=== PATIENT | male | born 1965 | race Caucasian/White ===

== ENCOUNTER 2020-09-07 22:15 | Inpatient (IN) | payer BC, OTHER ==
[~2020-09-07 22:15] MED LIST: Iopamidol-370 76% 500 ML 1 ML ONE
[2020-09-07 22:43] LABS: #Eosinphils 0.1 thou/uL (0.0-0.7); #Lymphocytes 1.9 thou/uL (1.20-3.40); #Monocytes 0.9 thou/uL (0.11-0.59); #Neutrophils 9.8 thou/uL (1.40-6.50); %Basophils 0.1 % (0.0-1.0); %Eosinophils 1.1 % (0.0-10.0); %Lymphocytes 14.9 % (21.0-51.0); %Monocytes 6.8 % (0.0-10.0); %Neutrophils 77.1 % (42.0-75.0); Hemoglobin 15.6 g/dL (14.0-18.0); Mean Corpuscular HGB CONC 35.5 g/dL (32.0-36.0); Mean Corpuscular Hemoglobin 34.8 pg (27.0-31.0); Mean Platelet Volume 7.4 fL (7.4-10.4); Platelet Count 248 thou/uL (130-400); RBC Distribution Width 11.2 % (11.5-14.5); Red Blood Cell (RBC) Count 4.49 mill/uL (4.70-6.10); White Blood Cell (WBC) Count 12.7 thou/uL (4.8-10.8)
[2020-09-07 23:06] LABS: ALT (SGPT) 28 U/L (8-55); AST (SGOT) 31 U/L (5-34); Albumin 4.6 g/dL (3.5-5.0); Alkaline Phosphatase 67 U/L (40-110); Anion Gap 15 mmol/L (10-20); BUN (Urea Nitrogen) 10 mg/dL (8.4-25.7); Bilirubin, Total 0.6 mg/dL (0.2-1.2); Calc. Creatinine Clearance 0 mL/min (70-130); Calcium 8.5 mg/dL (7.8-10.44); Carbon Dioxide 24 mmol/L (22-29); Chloride 96 mmol/L (98-107); Globulin 2.7 g/dL (2.4-3.5); Glucose 93 mg/dL (70-105); Lipase 28 U/L (8-78); Potassium 3.1 mmol/L (3.5-5.1); Protein, Total 7.3 g/dL (6.0-8.3); Sodium 132 mmol/L (136-145)
[2020-09-07] MEDS ORDERED: Morphine 4 MG/ML VIAL ONE (23:12)
[2020-09-08] MEDS ORDERED: Morphine 4 MG/ML VIAL ONE (01:41)
[2020-09-08] MEDS ORDERED: Dextrose 5% in Water 1,000 ML IV PRN (02:23)
[2020-09-08] MEDS ORDERED: hydrALAZINE 20 MG/ML VIAL SLOW IVP PRN (02:23)
[2020-09-08] MEDS ORDERED: Dextrose 50% Abboject 50 ML SYRINGE SLOW IVP PRN (02:23)
[2020-09-08] MEDS ORDERED: traMADol HCl 50 MG TAB PO PRN (02:23)
[2020-09-08] MEDS ORDERED: Ondansetron ODT 4 MG TAB PO PRN (02:23)
[2020-09-08] MEDS ORDERED: Ondansetron PF 4 MG/2 ML Vial IVP PRN (02:23)
[2020-09-08 02:37] VITALS: BMI 26.4
[2020-09-08] MEDS: Sodium Chloride 0.9% 1,000 ML IV SCH ×2 (02:53→11:46)
[2020-09-08] MEDS: traMADol HCl 50 MG TAB PO PRN ×4 (02:53→21:45)
[2020-09-08] MEDS: Cyclobenzaprine 10 MG TAB PO PRN ×3 (02:53→21:46)
[2020-09-08 05:08] LABS: #Lymphocytes 0.8 thou/uL (1.20-3.40); #Monocytes 0.6 thou/uL (0.11-0.59); #Neutrophils 6.7 thou/uL (1.40-6.50); %Basophils 0.3 % (0.0-1.0); %Eosinophils 0.3 % (0.0-10.0); %Lymphocytes 10.2 % (21.0-51.0); %Monocytes 7.5 % (0.0-10.0); %Neutrophils 81.8 % (42.0-75.0); Hemoglobin 14.1 g/dL (14.0-18.0); Mean Corpuscular HGB CONC 34.4 g/dL (32.0-36.0); Mean Corpuscular Volume 98.8 fL (78.0-98.0); Mean Platelet Volume 7.4 fL (7.4-10.4); Platelet Count 195 thou/uL (130-400); RBC Distribution Width 11.1 % (11.5-14.5); Red Blood Cell (RBC) Count 4.14 mill/uL (4.70-6.10); White Blood Cell (WBC) Count 8.2 thou/uL (4.8-10.8)
[2020-09-08 05:30] LABS: Anion Gap 14 mmol/L (10-20); BUN (Urea Nitrogen) 9 mg/dL (8.4-25.7); Calc. Creatinine Clearance 139 mL/min (70-130); Calcium 8.3 mg/dL (7.8-10.44); Carbon Dioxide 23 mmol/L (22-29); Chloride 97 mmol/L (98-107); Glucose 98 mg/dL (70-105); Potassium 3.4 mmol/L (3.5-5.1); Sodium 131 mmol/L (136-145)
[2020-09-08] MEDS: Ibuprofen 800 MG TAB PO SCH ×3 (05:45→21:40)
[2020-09-08] MEDS: Acetaminophen 325 MG TAB PO SCH ×3 (05:46→18:43)
[2020-09-08] MEDS: Morphine 2 MG/ML VIAL SLOW IVP PRN ×2 (06:42→18:52)
[2020-09-08] MEDS: Oxazepam 10 MG CAP PO SCH ×2 (07:12→15:54)
[2020-09-08 08:51] LABS: SARS-CoV-2 PCR by NAA Not Detected (NotDetected)
[2020-09-08] MEDS ORDERED: Folic Acid 1 MG TAB PO SCH (09:00)
[2020-09-08] MEDS ORDERED: Potassium Chloride 20 MEQ TAB PO SCH (09:00)
[2020-09-08] MEDS ORDERED: Triamterene/Hydrochlorothiazide 37.5 mg/25 mg Tablet PO SCH (09:00)
[2020-09-08] MEDS ORDERED: Famotidine 20 MG TAB PO SCH (09:00)
[2020-09-08] MEDS ORDERED: Amlodipine 10 MG TAB PO SCH (09:00)
[2020-09-08] MEDS: Senokot S 8.6-50 MG TAB PO SCH ×2 (09:10→21:41)
[2020-09-08] MEDS: Thiamine 100 MG TAB PO SCH (09:11)
[2020-09-08] MEDS: Polyethylene Glycol 3350 17 GM Packet PO SCH (09:14)
[2020-09-09] MEDS: Oxazepam 10 MG CAP PO SCH ×4 (01:56→21:07)
[2020-09-09] MEDS: Acetaminophen 325 MG TAB PO SCH ×4 (01:56→17:14)
[2020-09-09] MEDS: Ibuprofen 800 MG TAB PO SCH ×3 (06:04→21:59)
[2020-09-09] MEDS: Cyclobenzaprine 10 MG TAB PO PRN ×3 (06:04→21:59)
[2020-09-09] MEDS: traMADol HCl 50 MG TAB PO PRN ×3 (06:06→17:37)
[2020-09-09] MEDS: Morphine 2 MG/ML VIAL SLOW IVP PRN (07:33)
[2020-09-09] MEDS ORDERED: Triamterene/Hydrochlorothiazide 37.5 mg/25 mg Tablet PO SCH (09:00)
[2020-09-09] MEDS ORDERED: CHROMIUM PICOLINATE 200 MCG PO SCH (09:00)
[2020-09-09] MEDS ORDERED: Fish Oil 1,000 MG CAP PO SCH (09:00)
[2020-09-09] MEDS ORDERED: Folic Acid 1 MG TAB PO SCH (09:00)
[2020-09-09] MEDS ORDERED: Amlodipine 10 MG TAB PO SCH (09:00)
[2020-09-09] MEDS ORDERED: Multivit, Therapeutic 1 TAB PO SCH (09:00)
[2020-09-09] MEDS ORDERED: Pregabalin 75 MG CAP PO SCH (10:00)
[2020-09-09] MEDS: Thiamine 100 MG TAB PO SCH (10:15)
[2020-09-09] MEDS: HCTZ 25 MG PO SCH (10:17)
[2020-09-09] MEDS: AMLODIPINE 10 MG TAB PO SCH (10:17)
[2020-09-09] MEDS: TRIAMTERENE PO SCH (10:17)
[2020-09-09] MEDS: FISH OIL 1000 MG PO SCH (10:18)
[2020-09-09] MEDS: MULTIVITAMIN PO SCH (10:18)
[2020-09-09] MEDS: TURMERIC 1000 MG PO SCH (10:18)
[2020-09-09] MEDS: Polyethylene Glycol 3350 17 GM Packet PO SCH (10:19)
[2020-09-09] MEDS: METHYLFOLATE PO SCH (10:19)
[2020-09-09] MEDS: Senokot S 8.6-50 MG TAB PO SCH ×2 (10:19→20:51)
[2020-09-09] MEDS: Pregabalin 75 MG CAP PO SCH (20:50)
[2020-09-10] MEDS: Acetaminophen 325 MG TAB PO SCH ×5 (00:30→23:39)
[2020-09-10] MEDS: traMADol HCl 50 MG TAB PO PRN ×5 (00:30→23:38)
[2020-09-10] MEDS: Cyclobenzaprine 10 MG TAB PO PRN ×3 (05:57→22:08)
[2020-09-10] MEDS: Ibuprofen 800 MG TAB PO SCH ×3 (05:57→22:09)
[2020-09-10] MEDS: Oxazepam 10 MG CAP PO SCH ×3 (07:23→21:22)
[2020-09-10] MEDS: HCTZ 25 MG PO SCH (08:26)
[2020-09-10] MEDS: TURMERIC 1000 MG PO SCH (08:26)
[2020-09-10] MEDS: AMLODIPINE 10 MG TAB PO SCH (08:26)
[2020-09-10] MEDS: TRIAMTERENE PO SCH (08:26)
[2020-09-10] MEDS: MULTIVITAMIN PO SCH (08:26)
[2020-09-10] MEDS: FISH OIL 1000 MG PO SCH (08:26)
[2020-09-10] MEDS: METHYLFOLATE PO SCH (08:26)
[2020-09-10] MEDS: Pregabalin 75 MG CAP PO SCH ×2 (08:27→20:39)
[2020-09-10] MEDS: Senokot S 8.6-50 MG TAB PO SCH ×2 (08:27→20:38)
[2020-09-10] MEDS: Polyethylene Glycol 3350 17 GM Packet PO SCH (08:27)
[2020-09-10] MEDS: Thiamine 100 MG TAB PO SCH (08:27)
[2020-09-10 08:34] LABS: Anion Gap 10 mmol/L (10-20); BUN (Urea Nitrogen) 6 mg/dL (8.4-25.7); Calc. Creatinine Clearance 138 mL/min (70-130); Calcium 8.4 mg/dL (7.8-10.44); Carbon Dioxide 32 mmol/L (22-29); Chloride 99 mmol/L (98-107); Glucose 92 mg/dL (70-105); Magnesium 2.1 mg/dL (1.6-2.6); Phosphorus 3.8 mg/dL (2.3-4.7); Potassium 3.6 mmol/L (3.5-5.1); Sodium 137 mmol/L (136-145)
[2020-09-10] MEDS ORDERED: Potassium Chloride 20 MEQ TAB PO SCH (21:00)
[2020-09-11] MEDS: Oxazepam 10 MG CAP PO SCH ×3 (06:13→21:46)
[2020-09-11] MEDS: Cyclobenzaprine 10 MG TAB PO PRN ×3 (06:18→21:35)
[2020-09-11] MEDS: Ibuprofen 800 MG TAB PO SCH ×3 (06:18→21:35)
[2020-09-11] MEDS: Acetaminophen 325 MG TAB PO SCH ×3 (06:20→17:42)
[2020-09-11] MEDS: Polyethylene Glycol 3350 17 GM Packet PO SCH (09:23)
[2020-09-11] MEDS: traMADol HCl 50 MG TAB PO PRN ×3 (09:23→20:38)
[2020-09-11] MEDS: Senokot S 8.6-50 MG TAB PO SCH ×2 (09:23→20:36)
[2020-09-11] MEDS: Pregabalin 75 MG CAP PO SCH ×2 (09:23→20:37)
[2020-09-11] MEDS: FISH OIL 1000 MG PO SCH (09:24)
[2020-09-11] MEDS: AMLODIPINE 10 MG TAB PO SCH (09:24)
[2020-09-11] MEDS: TRIAMTERENE PO SCH (09:24)
[2020-09-11] MEDS: HCTZ 25 MG PO SCH (09:24)
[2020-09-11] MEDS: METHYLFOLATE PO SCH (09:24)
[2020-09-11] MEDS: Thiamine 100 MG TAB PO SCH (09:24)
[2020-09-11] MEDS: MULTIVITAMIN PO SCH (09:24)
[2020-09-11] MEDS: TURMERIC 1000 MG PO SCH (09:24)
[2020-09-11] MEDS ORDERED: Bisacodyl 10 MG SUPP PR SCH (11:30)
[2020-09-12] MEDS: Acetaminophen 325 MG TAB PO SCH ×5 (00:17→23:16)
[2020-09-12] MEDS: traMADol HCl 50 MG TAB PO PRN ×4 (03:12→21:52)
[2020-09-12] MEDS: Cyclobenzaprine 10 MG TAB PO PRN ×3 (05:16→20:34)
[2020-09-12] MEDS: Ibuprofen 800 MG TAB PO SCH ×2 (05:16→13:06)
[2020-09-12] MEDS: Oxazepam 10 MG CAP PO SCH ×3 (07:22→21:09)
[2020-09-12] MEDS: Senokot S 8.6-50 MG TAB PO SCH ×2 (09:17→20:34)
[2020-09-12] MEDS: Polyethylene Glycol 3350 17 GM Packet PO SCH (09:17)
[2020-09-12] MEDS: Bisacodyl 10 MG SUPP PR SCH (09:18)
[2020-09-12] MEDS: Pregabalin 75 MG CAP PO SCH ×2 (09:18→20:34)
[2020-09-12] MEDS: Thiamine 100 MG TAB PO SCH (09:20)
[2020-09-12] MEDS: TRIAMTERENE PO SCH (09:20)
[2020-09-12] MEDS: AMLODIPINE 10 MG TAB PO SCH (09:20)
[2020-09-12] MEDS: HCTZ 25 MG PO SCH (09:20)
[2020-09-12] MEDS: MULTIVITAMIN PO SCH (09:21)
[2020-09-12] MEDS: FISH OIL 1000 MG PO SCH (09:21)
[2020-09-12] MEDS: TURMERIC 1000 MG PO SCH (09:21)
[2020-09-12] MEDS: METHYLFOLATE PO SCH (09:21)
[2020-09-12] MEDS: Ibuprofen 200 MG TAB PO SCH (21:52)
[2020-09-13] MEDS: traMADol HCl 50 MG TAB PO PRN ×4 (04:04→22:09)
[2020-09-13] MEDS: Cyclobenzaprine 10 MG TAB PO PRN ×3 (05:34→21:07)
[2020-09-13] MEDS: Acetaminophen 325 MG TAB PO SCH ×3 (05:34→18:39)
[2020-09-13] MEDS: Ibuprofen 200 MG TAB PO SCH ×3 (05:34→22:10)
[2020-09-13] MEDS: Oxazepam 10 MG CAP PO SCH ×3 (06:50→21:11)
[2020-09-13] MEDS: Senokot S 8.6-50 MG TAB PO SCH ×2 (09:02→21:08)
[2020-09-13] MEDS: Thiamine 100 MG TAB PO SCH (09:02)
[2020-09-13] MEDS: Pregabalin 75 MG CAP PO SCH ×2 (09:02→21:08)
[2020-09-13] MEDS: Polyethylene Glycol 3350 17 GM Packet PO SCH (09:02)
[2020-09-13] MEDS: FISH OIL 1000 MG PO SCH (09:03)
[2020-09-13] MEDS: TURMERIC 1000 MG PO SCH (09:03)
[2020-09-13] MEDS: TRIAMTERENE PO SCH (09:04)
[2020-09-13] MEDS: AMLODIPINE 10 MG TAB PO SCH (09:04)
[2020-09-13] MEDS: MULTIVITAMIN PO SCH (09:04)
[2020-09-13] MEDS: Bisacodyl 10 MG SUPP PR SCH (09:04)
[2020-09-13] MEDS: METHYLFOLATE PO SCH (09:04)
[2020-09-13] MEDS: HCTZ 25 MG PO SCH (09:04)
[2020-09-14] MEDS: Acetaminophen 325 MG TAB PO SCH ×4 (00:03→17:54)
[2020-09-14] MEDS: traMADol HCl 50 MG TAB PO PRN ×3 (05:29→17:53)
[2020-09-14] MEDS: Ibuprofen 200 MG TAB PO SCH ×3 (05:29→22:32)
[2020-09-14] MEDS: Cyclobenzaprine 10 MG TAB PO PRN ×3 (05:29→22:33)
[2020-09-14] MEDS: Pregabalin 75 MG CAP PO SCH ×2 (08:46→22:32)
[2020-09-14] MEDS: Senokot S 8.6-50 MG TAB PO SCH ×2 (08:46→22:33)
[2020-09-14] MEDS: Thiamine 100 MG TAB PO SCH (08:46)
[2020-09-14] MEDS: Polyethylene Glycol 3350 17 GM Packet PO SCH (08:47)
[2020-09-14] MEDS: AMLODIPINE 10 MG TAB PO SCH (08:47)
[2020-09-14] MEDS: Oxazepam 10 MG CAP PO SCH ×3 (08:47→22:33)
[2020-09-14] MEDS: FISH OIL 1000 MG PO SCH (08:48)
[2020-09-14] MEDS: TRIAMTERENE PO SCH (08:48)
[2020-09-14] MEDS: HCTZ 25 MG PO SCH (08:48)
[2020-09-14] MEDS: METHYLFOLATE PO SCH (08:49)
[2020-09-14] MEDS: MULTIVITAMIN PO SCH (08:49)
[2020-09-14] MEDS: TURMERIC 1000 MG PO SCH (08:50)
[2020-09-14] MEDS: Bisacodyl 10 MG SUPP PR SCH (10:36)
[2020-09-15] MEDS: Acetaminophen 325 MG TAB PO SCH ×3 (00:25→12:11)
[2020-09-15] MEDS: Oxazepam 10 MG CAP PO SCH (07:25)
[2020-09-15] MEDS: Senokot S 8.6-50 MG TAB PO SCH (09:16)
[2020-09-15] MEDS: Ibuprofen 200 MG TAB PO SCH (09:16)
[2020-09-15] MEDS: Pregabalin 75 MG CAP PO SCH (09:16)
[2020-09-15] MEDS: Cyclobenzaprine 10 MG TAB PO PRN (09:16)
[2020-09-15] MEDS: Polyethylene Glycol 3350 17 GM Packet PO SCH (09:16)
[2020-09-15] MEDS: Thiamine 100 MG TAB PO SCH (09:16)
[2020-09-15] MEDS: HCTZ 25 MG PO SCH (09:17)
[2020-09-15] MEDS: TRIAMTERENE PO SCH (09:17)
[2020-09-15] MEDS: MULTIVITAMIN PO SCH (09:17)
[2020-09-15] MEDS: METHYLFOLATE PO SCH (09:17)
[2020-09-15] MEDS: TURMERIC 1000 MG PO SCH (09:18)
[2020-09-15] MEDS: AMLODIPINE 10 MG TAB PO SCH (09:18)
[2020-09-15] MEDS: FISH OIL 1000 MG PO SCH (09:19)
[2020-09-15] MEDS: Bisacodyl 10 MG SUPP PR SCH (09:21)
[2020-09-15 11:33] VITALS: TEMP 98
[2020-09-15] MEDS: traMADol HCl 50 MG TAB PO PRN (12:12)
[2020-09-15 14:30] VITALS: BP 146/86
== END 2020-09-15 14:33 | disposition swing bed (61) | DRG 184 ==
LOC: ERS 22:15 → SURG B 09-08 01:09
PROVIDERS: ADMIT Specialist; ATTEND Specialist
DX: S22.41XA Multiple fractures of ribs, right side, initial encounter for closed fracture (principal); S22.071A Stable burst fracture of T9-T10 vertebra, initial encounter for closed fracture; E87.1 Hypo-osmolality and hyponatremia; Z20.822 Contact with and (suspected) exposure to COVID-19; F17.210 Nicotine dependence, cigarettes, uncomplicated; I10 Essential (primary) hypertension; F10.10 Alcohol abuse, uncomplicated; V29.9XXA Motorcycle rider (driver) (passenger) injured in unspecified traffic accident, initial encounter; Y92.410 Unspecified street and highway as the place of occurrence of the external cause; Z79.899 Other long term (current) drug therapy
CPT/HCPCS: 36415; 70450; 71260; 72125; 74177; 80048; 80053; 83690; 83735; 84100; 85025; 87635; 93005; 94640; 96374; 96376; G0390; J2270; J2405; J7620; Q9967; U0003; U0005

== ENCOUNTER 2020-09-23 14:04 | Outpatient (CLI) | payer BC | END 2020-09-23 14:05 | disposition home or self-care (01) | LOC: BICRAD 14:04 | PROVIDERS: ATTEND Neurological Surgery | DX: S22.009A Unspecified fracture of unspecified thoracic vertebra, initial encounter for closed fracture (principal) | CPT/HCPCS: 72070 ==

== ENCOUNTER 2020-11-01 14:11 | Outpatient (CLI) | payer BC | END 2020-11-01 14:12 | disposition home or self-care (01) | LOC: BICRAD 14:11 | PROVIDERS: ATTEND Neurological Surgery | DX: S22.079D Unspecified fracture of T9-T10 vertebra, subsequent encounter for fracture with routine healing (principal) | CPT/HCPCS: 72070 ==

== ENCOUNTER 2021-03-31 09:37 | Outpatient (CLI) | payer BC ==
[2021-03-31] MEDS ORDERED: Iopamidol-370 76% 500 ML 1 ML ONE (10:33)
== END 2021-03-31 09:38 | disposition home or self-care (01) ==
LOC: BICCT 09:37
PROVIDERS: ATTEND Family Medicine
DX: R91.1 Solitary pulmonary nodule (principal)
CPT/HCPCS: 71260; Q9967